=== PATIENT | male | born 1985 | race Caucasian/White ===

== ENCOUNTER 2018-12-25 20:13 | Emergency (ER) | payer OTHER ==
[~2018-12-25] VITALS: Ht 175.3 cm; Wt 63.0 kg
[~2018-12-25 20:13] MED LIST: BACTRIM DS1 TAB PO; BENADRYL 50MG C50 MG OR; DOXYCYC MONO100 MG OR; ERY-TAB333 MG OR; NO MEDS
[2018-12-25] MEDS ORDERED: ULTRAM50 M1 PO (21:44)
[2018-12-25] MEDS ORDERED: FLEXERIL PO (21:44)
[2018-12-25 21:56] VITALS: BP 127/77
== END 2018-12-25 21:56 | disposition home or self-care (01) | DRG 552 ==
LOC: ED 20:13
DX: S13.9XXA Sprain of joints and ligaments of unspecified parts of neck, initial encounter (principal); F17.200 Nicotine dependence, unspecified, uncomplicated; V53.5XXA Driver of pick-up truck or van injured in collision with car, pick-up truck or van in traffic accident, initial encounter

== ENCOUNTER 2020-11-19 00:35 | Emergency (ER) | payer SELFPAY ==
[~2020-11-19 00:35] MED LIST changes: +FLEXERIL PO; +ULTRAM50 M1 PO
[2020-11-19 01:56] LABS: HEMATOCRIT 42.4 % (39.0-50.0); HEMOGLOBIN 14.4 g/dl (14.0-18.0); IMMATURE GRANULOCYTES 0.4 % (0.0-5.0); MEAN CELL VOLUME 92.4 fL CALC (80.0-100.0); MEAN CORPUSCULAR HGB 31.4 pG CALC (26.0-32.0); NEUT# 4.23 thou/uL (1.82-7.42); RED BLOOD COUNT 4.59 mill/uL (4.70-6.10); RED CELL DISTRI WIDTH 12.3 % (11.5-15.5)
[2020-11-19 02:15] LABS: ALBUMIN 4.5 g/dL (3.2-5.0); ALKALINE PHOSPHATASE 66 u/l (38-126); BILIRUBIN, TOTAL 0.6 mg/dL (0.0-1.4); BUN 15 mg/dL (9-20); BUN/CREATININE RATIO 22 (12-20 (CALC)); CARBON DIOXIDE 26 mmol/l (22-30); CHLORIDE 101 mmol/l (95-108); CREATININE 0.7 mg/dL (0.7-1.3); GFR > 60 ML/MIN (>=60 (CALC)); GFR FOR AFR.AMER. > 60 ML/MIN (>=60 (CALC)); SODIUM 136 mmol/l (137-146)
[2020-11-19 02:16] LABS: ANION GAP 12 (6-22 (CALC)); POTASSIUM 3.3 mmol/l (3.5-5.1); SGOT/AST 55 u/l (17-59)
[2020-11-19 02:28] LABS: MYOGLOBIN 129 ng/mL (0 - 121)
[2020-11-19 03:02] LABS: URINE BILIRUBIN - DIPSTICK NEGATIVE (NEGATIVE); URINE BLOOD DIPSTICK NEGATIVE (NEGATIVE); URINE COLOR YELLOW; URINE GLUCOSE - DIPSTICK NEGATIVE (NEGATIVE); URINE KETONE NEGATIVE (NEGATIVE); URINE LEUK ESTERASE NEGATIVE (NEGATIVE); URINE PH 5.5 (4.5-8.0); URINE PROTEIN - DIPSTICK NEGATIVE (NEG-TRACE); URINE UROBILINOGEN - DIPSTICK 0.2 E.U./dL (0.2)
[2020-11-19 03:05] LABS: URINE NITRITE - DIPSTICK NEGATIVE (Negative)
[2020-11-19] MEDS ORDERED: AMOXICILLIN500 MG PO (03:12)
[2020-11-19 07:25] VITALS: BP 120/69
== END 2020-11-19 07:25 | disposition home or self-care (01) | DRG 897 ==
LOC: ED 00:35
PROVIDERS: Emergency Medicine
DX: F19.10 Other psychoactive substance abuse, uncomplicated (principal); F10.10 Alcohol abuse, uncomplicated; S00.81XA Abrasion of other part of head, initial encounter; S00.83XA Contusion of other part of head, initial encounter; S60.511A Abrasion of right hand, initial encounter; S60.512A Abrasion of left hand, initial encounter; F17.210 Nicotine dependence, cigarettes, uncomplicated; X58.XXXA Exposure to other specified factors, initial encounter; Z20.822 Contact with and (suspected) exposure to COVID-19; V89.2XXA Person injured in unspecified motor-vehicle accident, traffic, initial encounter

== ENCOUNTER 2020-12-02 09:42 | Emergency (ER) | payer SELFPAY ==
[~2020-12-02] VITALS: Ht 175.3 cm; Wt 68.1 kg
[~2020-12-02 09:42] MED LIST changes: +AMOXICILLIN500 MG PO
[2020-12-02] MEDS ORDERED: KEFLEX500 MG PO (11:37)
[2020-12-02] MEDS ORDERED: BACTRIM DS1 TAB PO (11:37)
[2020-12-02 11:55] VITALS: BP 132/72
--- NOTE | 2020-12-04 13:00 | NUR ---
Attempted to contact the patient regarding wound culture. No answer. Will follow-up tomorrow.
== END 2020-12-02 12:00 | disposition home or self-care (01) | DRG 603 ==
LOC: ED 09:42
DX: L02.512 Cutaneous abscess of left hand (principal); F17.210 Nicotine dependence, cigarettes, uncomplicated

== ENCOUNTER 2021-06-08 16:03 | Emergency (ER) | payer SELFPAY ==
[~2021-06-08] VITALS: Ht 175.3 cm; Wt 68.0 kg
[~2021-06-08 16:03] MED LIST changes: +KEFLEX500 MG PO
[2021-06-08 18:38] VITALS: BP 138/85
== END 2021-06-08 18:38 | disposition home or self-care (01) | DRG 728 ==
LOC: ED 16:03
DX: A64 Unspecified sexually transmitted disease (principal); F17.200 Nicotine dependence, unspecified, uncomplicated

== ENCOUNTER 2023-02-09 08:38 | Emergency (ER) | payer SELFPAY ==
[~2023-02-09] VITALS: Ht 175.3 cm; Wt 72.5 kg
[2023-02-09 08:49] VITALS: BP 138/85
[2023-02-09 09:01] VITALS: BP 128/79
[2023-02-09 09:01] LABS: BASO% 0.3 % (0-3); EOS% 2.6 % (0-8); HEMATOCRIT 45.2 % (39.0-50.0); IMMATURE GRANULOCYTES 0.9 % (0.0-5.0); LYMPH% 17.7 % (15-41); MEAN CELL VOLUME 93.6 fL CALC (80.0-100.0); MEAN CORPUSCULAR HGB 31.1 pG CALC (26.0-32.0); MEAN CORPUSCULAR HGB CONC 33.2 g/dL CAL (32.0-36.0); NEUT# 6.5 thou/uL (1.82-7.42); NEUT% 71.5 % (42-76); RED BLOOD COUNT 4.83 mill/uL (4.70-6.10)
[2023-02-09 09:19] LABS: ALBUMIN 4.7 g/dL (3.2-5.0); ALKALINE PHOSPHATASE 75 u/l (38-126); ANION GAP 14 (6-22 (CALC)); BILIRUBIN, TOTAL 0.5 mg/dL (0.2-1.3); BUN 8 mg/dL (9-20); BUN/CREATININE RATIO 9 (12-20 (CALC)); CARBON DIOXIDE 24 mmol/l (22-30); CHLORIDE 103 mmol/l (95-108); CREATININE 0.9 mg/dL (0.7-1.3); ETHYL ALCOHOL 0 mg/dl (0-30); GFR FOR AFR.AMER. > 60 ML/MIN (>=60 (CALC)); GFR OTHER RACES > 60 ML/MIN (>=60 (CALC)); POTASSIUM 3.4 mmol/l (3.5-5.1); SGOT/AST 36 u/l (17-59); SODIUM 138 mmol/l (137-146); TOTAL PROTEIN 8.2 g/dL (6.3-8.2)
[2023-02-09 09:22] VITALS: BP 119/67
[2023-02-09 09:41] VITALS: BP 135/80
[2023-02-09 09:53] VITALS: BP 135/80
== END 2023-02-09 09:47 | disposition left against medical advice (07) | DRG 918 ==
LOC: ED 08:38
PROVIDERS: Family Medicine
DX: T43.651A Poisoning by methamphetamines accidental (unintentional), initial encounter (principal); F17.200 Nicotine dependence, unspecified, uncomplicated; Z53.29 Procedure and treatment not carried out because of patient's decision for other reasons

== ENCOUNTER 2024-02-16 16:03 | Emergency (ER) | payer OTHER ==
[2024-02-16] VITALS (8 sets, daily range): BP systolic 120–136; BP diastolic 73–86
[~2024-02-16] VITALS: Ht 175.3 cm; Wt 70.3 kg
== END 2024-02-16 17:58 | disposition home or self-care (01) | DRG 605 ==
LOC: ED 16:03
DX: S60.512A Abrasion of left hand, initial encounter (principal); S60.511A Abrasion of right hand, initial encounter; S00.211A Abrasion of right eyelid and periocular area, initial encounter; S00.81XA Abrasion of other part of head, initial encounter; S00.93XA Contusion of unspecified part of head, initial encounter; H11.31 Conjunctival hemorrhage, right eye; F17.200 Nicotine dependence, unspecified, uncomplicated; Y04.8XXA Assault by other bodily force, initial encounter; Y92.149 Unspecified place in prison as the place of occurrence of the external cause